=== PATIENT | female | born 1995 | race Two or more races ===

== ENCOUNTER 2016-11-21 17:35 | Observation (INO) | payer OTHER ==
[~2016-11-21] VITALS: Ht 144.8 cm; Wt 60.1 kg
[2016-11-21] MEDS ORDERED: CELE10TA PO (17:44)
[2016-11-21] MEDS ORDERED: METOCLOPRAMIDE INJ 10MG/2ML VIAL (J2765) IV ONE (19:30)
[2016-11-21] MEDS ORDERED: KETOROLAC 30 MG/ML VIAL (J1885) IV ONE (20:30)
[2016-11-21 20:31] LABS: BASO % 0.3 % (0.0-1.0); EOS % 0.3 % (0.0-3.0); IMMATURE GRANULOCYTE % 0.1 % (0-0); LYMPH # 1.9 10^3/uL (1.5-6.5); LYMPH % 26.4 % (24.0-44.0); MEAN CORPUSCULAR HGB CONC 34.4 g/dl (32.0-36.5); MEAN CORPUSCULAR VOLUME 84.2 fl (80.0-96.0); MONO # 0.5 10^3/uL (0.0-0.8); MONO % 6.6 % (0.0-5.0); NEUTROPHILS # 4.7 10^3/uL (1.8-7.7); NEUTROPHILS % 66.3 % (36.0-66.0); PLATELET COUNT, AUTOMATED 209 10^3/uL (150-450); RED CELL DISTRIBUTION WIDTH 12.1 % (11.5-14.5); WHITE BLOOD COUNT 7.2 10^3/uL (4.0-10.0)
[2016-11-21 20:57] LABS: ANION GAP 9 MEQ/L (8-16); BLOOD UREA NITROGEN 8 MG/DL (7-18); CALCIUM LEVEL 8.8 MG/DL (8.5-10.1); CARBON DIOXIDE LEVEL 25 MEQ/L (21-32); CHLORIDE LEVEL 103 MEQ/L (98-107); CREATININE FOR GFR 0.49 MG/DL (0.55-1.02); GLOMERULAR FILTRATION RATE > 60.0 (>60); GLUCOSE, FASTING 80 MG/DL (70-105); POTASSIUM SERUM 3.6 MEQ/L (3.5-5.1); SODIUM LEVEL 137 MEQ/L (136-145)
[2016-11-21 20:58] LABS: ERYTHROCYTE SEDIMENTATION RATE 20 mm/hr (0-20)
[2016-11-21] MEDS ORDERED: AMITRIPTYLINE 10 MG TAB PO SCH (21:00)
--- NOTE | 2016-11-21 21:00 | REPUSA ---
CT of the head Clinical history: Headache. Technique: Multiple axial CT images were obtained through the head without administration of contrast . Findings: The ventricles and sulci are symmetric bilaterally. There is no evidence of acute hemorrhag e or infarct. There is no midline shift, mass effect, or extra-axial fluid collection. The osseous st ructures are unremarkable. The visualized paranasal sinuses and mastoid air cells are clear. Impression: Negative study.
[2016-11-21] MEDS ORDERED: TYLE500T78 PO (22:17)
[2016-11-22] MEDS ORDERED: LORazepam 2 MG/ML VIAL (J2060) IV STA ×2 (00:27→13:14)
[2016-11-22] MEDS ORDERED: METOCLOPRAMIDE INJ 10MG/2ML VIAL (J2765) IV PRN ×2 (01:30→11:30)
--- NOTE | 2016-11-22 01:50 | REPUSA ---
CLINICAL HISTORY: Headaches. TECHNIQUE: MRI of the brain was performed without administration of intravenous contrast material. T1 spine echo, T2 fast spin echo and FLAIR sequences were obtained in sagittal, axial and coronal plane s. FINDINGS: The sella and parasellar regions are unremarkable in appearance. The corpus callosum and cerebellar t onsils are of normal configuration and position. There are no intra or extra-axial collections. There is no mass effect or midline shift. There is no evidence of hematoma formation. There is no hydrocep halus. The brain stem shows no mass effects, infarcts or hemorrhage. There are no cerebellopontine tumors. T he acoustic nerves are symmetrical. No cerebellar intra-axial pathology delineated. The fourth ventri donald and aqueduct are normal. No abnormalities of the optic nerves are identified. No dural or subdura l masses or collections are detected. The visualized arterial structures demonstrate normal appearing flow voids. The VII and VIII nerve bu ndles are visualized and are unremarkable in appearance. There are no suspicious signal abnormalities within the infra or supratentorial space. IMPRESSION: Normal MRI of the brain. No acute intracranial pathology. Thank you for your kind referral of this patient.
--- NOTE | 2016-11-22 03:35 | HPEPDOC ---
General Date of Admission Nov 21, 2016 at 17:36 Other Providers No PCP, but is . Recommend establishing with Raj Attending Physician: YO HUNG MD Chief Complaint The patient is a 21-year-old female admitted with a reason for visit of Intractable Headache. Source: Patient, Family Exam Limitations: No limitations History of Present Illness Mrs. Champange is a 21-year-old female who has been suffering from headaches and/or migraines for the past 7 months. She stated that her symptoms began while she was with her first child who is now currently 4 months old. When her symptoms began she states that they were approximately once a week if that there, and now she is suffering from daily symptoms. Her symptoms include tendinitis, sometimes 3 times a day. Flashes of light described as somebody swinging a flashlight in her peripheral vision, or occasionally swinging a light across her central vision. She states that the flashes of light are instantaneous and then resolve, they are always associated with a headache. She did have some nausea and one episode of vomiting earlier today, but has never vomited in the past. Sound and light aggravate her headaches, a dark room does help. She has taken Tylenol approximately once a month when the symptoms are very severe, otherwise she was discovered on a cool dark room and lie down and let them resolve on their own. She does not smoke (tobacco), she is not taking oral contraceptive, but has an IUD in place. Home Medications Scheduled PRN Acetaminophen (Tylenol Extra Strength) 500 Mg Tab, 1,000 MG PO Q6H PRN for HEADACHE OR PAIN, (Reported) Allergies Coded Allergies: Sertraline (Unverified Allergy, Intermediate, HIVES, VOMITING, HEADACHE, ) Citalopram (Unverified Adverse Reaction, Intermediate, VOMITING, HEADACHE , 11/21/16) Past Medical History Medical History PTSD Anxiety Major depression Surgical History No surgeries Family History Both her mother and her sister suffer from migraines Social History * Smoker: Denies Alcohol: Denies Drugs: marijuana (uses on almost a daily basis) Recent Travel/Sick Contacts: Denies: Recent travel Psychosocial History: Anxiety, Depression, PTSD Lives at home with her and her 4-month-old daughter. Review of Symptoms Constitutional: Denies: Chills, Fever, Night Sweats Eyes: Reports: Pain, Vision change (she states that her prescription lenses changed while she was , but she has never had any loss of vision), Other (flashing lights in the periphery of her vision as described above) ENT: Reports: Head Aches, Denies: Ear Pain, Dysphagia Skin: Denies: Rash, Lesions, Breakdown Pulmonary: Denies: Dyspnea, Cough Cardiovascular: Denies: Chest Pain, Palpitations, Orthopnea, Paroxysmal Noc. Dyspnea, Lt Headedness Gastrointestinal: Reports: Nausea, Vomiting, Denies: Abdominal Pain, Diarrhea Hematologic: Denies: Bruising, Bleeding Excessively Musculoskeletal: Denies: Neck Pain, Back Pain, Joint Pain, Muscle Pain, Spasms Neurological: Denies: Weakness, Numbness, Change in speech, Confusion Psych: Reports: Mood Normal, Denies: Depression, Memory Issues Physical Examination General Exam: Positive: Alert, Cooperative, No Acute Distress Eye Exam: Positive: PERRLA, Conjunctiva & lids normal, EOMI, Other Eye Symptoms (opthalamic examination reveals no papilledema), Negative: Sclera icteric ENT Exam: Positive: Atraumatic, Mucous membr. moist/pink, Pharynx Normal Neck Exam: Positive: Supple, Negative: JVD, thyromegaly Chest Exam: Positive: Clear to auscultation, Normal air movement Heart Exam: Positive: Rate Normal, Regular Rhythm, Normal S1, Normal S2, Negative: Murmurs, Rubs Abdomen Exam: Positive: Normal bowel sounds, Soft, Negative: Tenderness, Hepatospenomegaly Extremity Exam: Positive: Normal pulses, Negative: Clubbing, Cyanosis, Edema Skin Exam: Positive: Nl turgor and temperature, Negative: Breakdown, Lesion Neuro Exam: Positive: Normal Gait, Normal Speech, Cranial Nerves 3-12 NL, Reflexes 2+ Psych Exam: Positive: Mental status NL, Mood NL, Oriented x 3 Vital Signs Vital Signs Date Time Temp Pulse Resp B/P (MAP) Pulse Ox O2 Delivery O2 Flow Rate FiO2 11/22/16 02:22 98.3 90 18 123/69 (87) 96 Room Air Laboratory Data Labs 24H Laboratory Tests 2 11/21/16 20:17: White Blood Count 7.2, Red Blood Count 4.38, Hemoglobin 12.7, Hematocrit 36.9, Mean Corpuscular Volume 84.2, Mean Corpuscular Hemoglobin 29.0, Mean Corpuscular Hemoglobin Concent 34.4, Red Cell Distribution Width 12.1, Platelet Count 209, Neutrophils (%) (Auto) 66.3H, Lymphocytes (%) (Auto) 26.4, Monocytes (%) (Auto) 6.6H, Eosinophils (%) (Auto) 0.3, Basophils (%) (Auto) 0.3, Neutrophils # (Auto) 4.7, Lymphocytes # (Auto) 1.9, Monocytes # (Auto) 0.5, Eosinophils # (Auto) 0.0, Basophils # (Auto) 0.0, Immature Granulocyte # (Auto) 0.0, Nucleated Red Blood Cells % (auto) 0.0, Erythrocyte Sedimentation Rate 20, Anion Gap 9, Glomerular Filtration Rate > 60.0, Blood Urea Nitrogen 8, Creatinine 0.49L, Sodium Level 137, Potassium Level 3.6, Chloride Level 103, Carbon Dioxide Level 25, Calcium Level 8.8 CBC/BMP Laboratory Tests 11/21/16 20:17 Red Blood Count 4.38, Mean Corpuscular Volume 84.2, Mean Corpuscular Hemoglobin 29.0, Mean Corpuscular Hemoglobin Concent 34.4, Red Cell Distribution Width 12.1 , Neutrophils (%) (Auto) 66.3 H, Lymphocytes (%) (Auto) 26.4, Monocytes (%) ( Auto) 6.6 H, Eosinophils (%) (Auto) 0.3, Basophils (%) (Auto) 0.3, Neutrophils # (Auto) 4.7, Lymphocytes # (Auto) 1.9, Monocytes # (Auto) 0.5, Eosinophils # ( Auto) 0.0, Basophils # (Auto) 0.0, Calcium Level 8.8 Problems (1) Migraine headache with aura Status: Acute Problem Text: After treatment with Reglan and Toradol, she is now feeling much better. We will admit her overnight for observation and if she is still asymptomatic she may probably be able to go home within the next 24 hours. She is now suffering from daily symptoms, therefore a preventative medication would be indicated, given her psychiatric history, a tricyclic antidepressant may be a good first choice. This was not administered at this time as it is already 2: 30 AM, her current symptoms have abated, and these can have significant sedating side effects. Therefore may recommend starting this tomorrow evening. For now, we will put her on scheduled Reglan. (2) Depression Status: Chronic (3) Anxiety Status: Chronic (4) PTSD (post-traumatic stress disorder) Status: Chronic Plan / VTE VTE Prophylaxis Ordered?: Yes (encourage ambulation) JOHANNY ARMENDARIZ DO Nov 22, 2016 03:35
[2016-11-22 03:59] VITALS: BP 119/76
[2016-11-22] MEDS ORDERED: METOCLOPRAMIDE INJ 10MG/2ML VIAL (J2765) IV SCH (04:00)
[2016-11-22] MEDS: ACETAMINOPHEN TAB 650MG DOSE (2X325MG) PO PRN ×2 (04:10→08:50)
[2016-11-22] MEDS ORDERED: ENOXAPARIN 40 MG/0.4 ML SYRINGE (J1650) SC SCH (09:00)
[2016-11-22] MEDS ORDERED: KETOROLAC 30 MG/ML VIAL (J1885) IV PRN (11:15)
[2016-11-22] MEDS ORDERED: NORCO, ANEXSIA 5/325MG TABLET (HYDROcodone/ACETAMINOPHEN) PO PRN (11:15)
--- NOTE | 2016-11-22 16:32 | REP ---
MRA HEAD WITH AND WITHOUT CONTRAST: HISTORY: Sinus thrombosis. CONTRAST: ProHance 12 mL. Unenhanced and enhanced 3-D phase contrast MR angiography was performed with a velocity encoding of 15 cm/s. There are no filling defects in the deep venous system or dural sinuses. There is no stenosis. The right transverse and sigmoid sinuses are dominant. IMPRESSION:Normal MRA brain. Signed by Valente Sutherland MD 11/22/2016 04:36 P
[2016-11-22] MEDS ORDERED: IBUP-1114 PO (19:19)
[2016-11-22] MEDS ORDERED: AMIT25TA PO (19:19)
--- NOTE | 2016-11-22 20:26 | IPN ---
DATE: 11/22/2016 Ms. Champagne still complains of a headache and it is somewhat worse on the right side. She has had some visual disturbance. She has experienced paresthesias on both hands, currently is not experiencing those. Does have a history of headache, has a strong family history of headache and migraine. Is month #4. Temperature 99.1, pulse 107, respiratory rate 16, blood pressure 119/76, 98% on room air. Intake and output are net zero at the moment. Body mass index 28.7. She is awake, appropriately interactive, pleasantly conversant, a good historian. Mucous membranes are moist. Neck is supple. Breathing is symmetrical and rested. Heart is in a regular rate and rhythm. Abdomen is soft, doughy, nontender. There are no morning labs for me to review. My assessment is as follows: This is a 21-year-old with headache and visual changes. Plan is as follows: 1. Patient has headache. The cause of this is somewhat unclear. The patient will be seen by neurology today. I have discussed this with Dr. Casas in general. Will defer further workup of headache in this setting to him. 2. Patient has depression and anxiety. 3. Patient has history of posttraumatic stress disorder (PTSD). 4. Patient has no local primary medical doctor (PMD) but has and would need to be seen likely at [place].
[2016-11-22] MEDS ORDERED: NORTRIPTYLINE 10 MG CAP PO SCH (21:00)
--- NOTE | 2016-11-24 15:45 | CR ---
DATE OF CONSULTATION: 11/22/2016 REFERRING PROVIDER: Hubert Valencia MD REASON FOR CONSULTATION: Headache with visual change. The patient is a 21-year-old female with past medical history significant for migraines who presents with a chief complaint of experiencing more frequent migraine headaches during her most recent . The patient delivered a healthy young girl approximately 4 months ago. Since then the patient has been having on and off headaches. She is sleeping less while at home. The patient describes the headaches as daily bilateral temporal and occipital headaches. The occipital headaches are sharp, consistent with occipital neuralgia and the daily temporal headaches are described as pressure and throbbing. They last about an hour and they are on a pain scale of 8/10. Migraines are associated with light sensitivity, nausea and vomiting and dizziness with blurred vision. The patient has noted intermittent blurred vision of both eyes, in particular the left eye more than the right. In the past, she used to get auras 2-3 minutes before headaches described as flashing lights associated with a loud tinnitus. The patient denies any sensory, motor, or speech changes with her headaches. The headaches build up over time, are worse with activity, better in a quiet, dark room and definitely worse with menstrual cycles. The patient has a strong family history of migraines including her mother and maternal grandmother. The patient has tried Zoloft and Celexa which were causing worsening headaches as well as making her feel sick to her stomach. The patient herself does not have a history of kidney stones. Triggers to her migraines include chocolate and peanut butter. The patient is in agreement to go ahead and try a migraine preventative therapy including nortriptyline. MRI of the brain was normal. MR venogram was requested through Hubert Valencia who ordered the study and that was also normal for any sign of venous thrombosis. The patient was seen by neurosurgery earlier in the admission for an unclear cause. REVIEW OF SYSTEMS: 14-point review of systems obtained and is negative except as per HPI. The patient's headache resolved after Toradol earlier today. PAST MEDICAL HISTORY: PTSD, anxiety, major depression, migraine headaches. PAST SURGICAL HISTORY: None. FAMILY HISTORY: Mother and maternal grandmother with migraines. SOCIAL HISTORY: The patient denies use of alcohol or tobacco but uses marijuana almost on a daily basis. ALLERGIES: SERTRALINE and CITALOPRAM. PHYSICAL EXAMINATION: Blood pressure 119/76, pulse rate is 107, temperature is 99.1 degrees Fahrenheit, oxygenation is 99% on room air. Respiratory rate of 16. The patient is awake, alert, oriented to person, place and time. Speech, language, comprehension and repetition are intact. Pupils are 3 mm, round, reactive to light. Extraocular movements are intact in all directions. Sensation V1, V2, V3 is intact to light touch. No facial asymmetry to activation. Palate elevates symmetrically. Tongue is midline. No weakness of sternocleidomastoids bilaterally. Hearing is subjectively equal to finger rub. No pronator drift. Strength is 5/5 including bilateral deltoids, biceps, triceps, handgrip, iliopsoas, quadriceps, anterior tibialis. Deep tendon reflexes are 2+ throughout. Babinski signs are absent. Sensory is intact to light touch, temperature, vibration throughout. Gait is normal. Romberg testing is negative. ASSESSMENT: 1. Chronic intractable migraine headaches with and without aura without status migrainosus. 2. Possible frequent headaches and nausea and vomiting related to excess marijuana use. 3. MR venogram completed and ruled out for any sinus venous thrombosis. 4. Pituitary fossa, pituitary gland and brain MRI read as normal. PLAN: 1. Start nortriptyline 25 mg by mouth nightly. Followup with primary care provider and behavioral therapist for management of depression and anxiety. 2. Recommend cutting down on daily marijuana use. 3. The patient can followup in the [facility] office for followup in 4 weeks.
== END 2016-11-22 19:50 | disposition home or self-care (01) ==
LOC: M ED 17:35 → M ED INP 17:36 → M MSPAV 11-22 04:00
PROVIDERS: ADMIT Internal Medicine Nephrology; ATTEND Internal Medicine
DX: G43.119 Migraine with aura, intractable, without status migrainosus (principal); F43.10 Post-traumatic stress disorder, unspecified; F41.9 Anxiety disorder, unspecified; F32.9 Major depressive disorder, single episode, unspecified; F12.10 Cannabis abuse, uncomplicated
CPT/HCPCS: 70450; 70546; 70551; 80048; 81025; 85025; 85652; 96374; 96375; 96376; 99284; A9576; J1885; J2060; J2765

== ENCOUNTER → 2017-04-10 | Outpatient (REF) | payer OTHER | LOC: M SFHCPLAZ 17:45 | DX: J02.9 Acute pharyngitis, unspecified (principal) ==

== ENCOUNTER → 2017-08-14 | Outpatient (CLI) | payer OTHER | LOC: M RAD 11:35 | DX: M54.42 Lumbago with sciatica, left side (principal); M54.41 Lumbago with sciatica, right side ==

== ENCOUNTER 2017-08-17 13:58 | Outpatient (RCR) | payer OTHER | END 2017-08-26 | LOC: M PT 13:58 | DX: Z51.89 Encounter for other specified aftercare (principal); M54.6 Pain in thoracic spine | CPT/HCPCS: 97161 ==

== ENCOUNTER 2017-09-06 14:19 | Outpatient (RCR) | payer OTHER | END 2017-09-26 | LOC: M PT 14:19 | DX: Z51.89 Encounter for other specified aftercare (principal); M54.6 Pain in thoracic spine | CPT/HCPCS: 97010 ==